=== PATIENT | female | born 1935 | race Caucasian/White ===

== ENCOUNTER → 2017-12-31 | Outpatient (CLI) | payer MEDICARE, BC ==
--- NOTE | 2017-12-31 17:28 | XR ---
EXAMINATION TYPE: XR abdomen 2V DATE OF EXAM: 12/31/2017 COMPARISON: NONE HISTORY: Constipation TECHNIQUE: 2 views FINDINGS: There is no sign of intestinal obstruction or pneumoperitoneum. Fecal pattern is normal. Th ere are no pathologic calcifications over the kidneys. Lung bases are clear. IMPRESSION: Nonacute abdomen.
== END ==
LOC: RADXRYALE 16:52
PROVIDERS: ATTEND Family Medicine
DX: K59.01 Slow transit constipation (principal)
CPT/HCPCS: 74019

== ENCOUNTER → 2018-03-26 | Outpatient (CLI) | payer MEDICARE, BC ==
--- NOTE | 2018-03-27 11:39 | XR ---
Cervical spine HISTORY: Neck pain, left shoulder pain 4 views of the cervical spine submitted. Patient is post median sternotomy. No odontoid view is submitted. Lateral extension endplate disc complex is causes some foraminal encroachment on the left at C5-6 and right. There is anterolisthesis grade 1 C3-4, retrolisthesis grade 1 C5-6. Multilevel spondylosis is present. Loss of disc height is greatest at C5-6 and present to lesser extent C4-5. Cervical vertebr al bodies show preserved height. Bone mineralization is reduced. Prevertebral soft tissues are normal . C7-T1 not well seen. Facet arthropathy changes noted. IMPRESSION: Degenerative disc disease, facet arthropathy. Osteopenia. Limitations as described.
--- NOTE | 2018-03-27 11:41 | XR ---
Left shoulder HISTORY: Pain 3 views of the left shoulder, correlation to prior exam 12/30/2014 There is arthropathy at the acromioclavicular joint. Alignment is maintained. Bone mineralization nicolle ewhat reduced. Left shoulder somewhat high riding. Left lung apex as visualized is normal. The aorta is dense. IMPRESSION: Acromioclavicular joint arthropathy. There may be chronic rotator cuff tear.
== END | disposition home or self-care (01) ==
LOC: RADXRYALE 15:41
PROVIDERS: ATTEND Physician Assistant Medical
DX: M50.30 Other cervical disc degeneration, unspecified cervical region (principal); M85.88 Other specified disorders of bone density and structure, other site; M46.92 Unspecified inflammatory spondylopathy, cervical region; M19.012 Primary osteoarthritis, left shoulder
CPT/HCPCS: 72050

== ENCOUNTER 2020-04-12 13:50 | Inpatient (IN) | payer MEDICARE, BC ==
--- NOTE | 2020-04-12 14:49 | ED ---
GI Bleed HPI - General Chief complaint: GI Bleed Stated complaint: rectal bleed Time Seen by Provider: 04/12/20 14:10 Source: patient Mode of arrival: wheelchair Limitations: no limitations - History of Present Illness Initial comments: Patient is an 84-year-old female with past medical history of hypertension who presents to emergency department with reported bright red blood per rectum. is at bedside and states that the symptoms have been going on for the past week. She had a large bowel movement yesterday which was bright red in color. She saw her primary care physician who took her off of her aspirin. States they stopped a second medication however they are unsure of what it is. The patient continued to have an episode this morning. Denies diarrhea or constipation. No history of similar in the past. Patient admits to right lower quadrant abdominal pain. States his been greater than 20 years and she had a colonoscopy. Denies any nausea or vomiting. No changes in her urination to include dysuria, hematuria or difficulty voiding. No fevers or chills. No other alleviating, precipitating or modifying factors - Related Data Home Medications Medication Instructions Recorded Confirmed Felodipine ER [Plendil] 5 mg PO DAILY 04/12/20 04/12/20 Meloxicam 15 mg PO DAILY PRN 04/12/20 04/12/20 Metoprolol Tartrate [Lopressor] 50 mg PO BID 04/12/20 04/12/20 Pantoprazole Sodium [Protonix] 40 mg PO DAILY 04/12/20 04/12/20 Simvastatin [Zocor] 20 mg PO DAILY 04/12/20 04/12/20 Allergies Allergy/AdvReac Type Severity Reaction Status Date / Time No Known Allergies Allergy Verified 04/12/20 14:10 Review of Systems ROS Statement: Those systems with pertinent positive or pertinent negative responses have been documented in the HPI. ROS Other: All systems not noted in ROS Statement are negative. Past Medical History Past Medical History: Hyperlipidemia, Hypertension Additional Past Medical History / Comment(s): pt poor historian Past Surgical History: Coronary Bypass/CABG, Heart Catheterization With Stent, Hernia Repair Additional Past Surgical History / Comment(s): poor historian, lt knee Past Psychological History: No Psychological Hx Reported Smoking Status: Never smoker Past Alcohol Use History: None Reported Past Drug Use History: None Reported General Exam Limitations: no limitations General appearance: alert, in no apparent distress Head exam: Present: atraumatic, normocephalic, normal inspection Eye exam: Present: normal appearance, PERRL, EOMI. Absent: scleral icterus, conjunctival injection, periorbital swelling ENT exam: Present: normal exam, mucous membranes moist Neck exam: Present: normal inspection. Absent: tenderness, meningismus, lymphadenopathy Respiratory exam: Present: normal lung sounds bilaterally. Absent: respiratory distress, wheezes, rales, rhonchi, stridor Cardiovascular Exam: Present: regular rate, normal rhythm, normal heart sounds. Absent: systolic murmur, diastolic murmur, rubs, gallop, clicks GI/Abdominal exam: Present: soft, normal bowel sounds. Absent: distended, tenderness, guarding, rebound, rigid Rectal exam: Present: bloody stool Extremities exam: Present: normal inspection, full ROM, normal capillary refill. Absent: tenderness, pedal edema, joint swelling, calf tenderness Back exam: Present: normal inspection Neurological exam: Present: alert, oriented X3, CN II-XII intact Psychiatric exam: Present: normal affect, normal mood Skin exam: Present: warm, dry, intact, normal color. Absent: rash Course Vital Signs 04/12/20 04/12/20 04/12/20 14:06 16:26 17:21 Temperature 99.1 F 97.6 F Pulse Rate 63 67 Pulse Rate [ 76 Pulse Oximetery ] Respiratory 18 16 17 Rate Blood Pressure 144/72 171/80 Blood Pressure 168/84 [Right Arm] O2 Sat by Pulse 100 98 97 Oximetry 04/12/20 17:30 Temperature 98.3 F Pulse Rate 69 Pulse Rate [ Pulse Oximetery ] Respiratory 16 Rate Blood Pressure 157/81 Blood Pressure [Right Arm] O2 Sat by Pulse 98 Oximetry Medical Decision Making - Medical Decision Making Upon arrival the patient was placed into room 10. A thorough history and physical exam is performed. The exam does demonstrate a small amount of dark, maroon stool. IV is established and laboratory studies were conducted. Patient does go for CT for abdomen and pelvis because of reported abdominal pain. Platelets mildly low at 147. Fecal occult does come back and is positive. CT demonstrates anal thickening with diverticulosis. There is a sclerotic changes of the abdominal aorta with some intraluminal plaquing. The patient is reevaluated and vitals are stable. Did recommend admission and order trend the patient's hemoglobin and have consult performed by GI. Patient and did agree to this. Spoke with Yokasta from [facility] who agreed to admit the patient. Patient is currently awaiting a bed - Lab Data Result diagrams: 04/14/20 03:41 04/15/20 04:34 Lab Results 04/12/20 04/12/20 04/12/20 Range/Units 14:50 14:57 14:57 WBC 4.9 (3.8-10.6) k/uL RBC 4.58 (3.80-5.40) m/uL Hgb 13.3 (11.4-16.0) gm/dL Hct 40.4 (34.0-46.0) % MCV 88.1 (80.0-100.0) fL MCH 28.9 (25.0-35.0) pg MCHC 32.8 (31.0-37.0) g/dL RDW 13.9 (11.5-15.5) % Plt Count 147 L (150-450) k/uL MPV 7.3 Neutrophils % 62 % Lymphocytes % 25 % Monocytes % 7 % Eosinophils % 3 % Basophils % 1 % Neutrophils # 3.0 (1.3-7.7) k/uL Lymphocytes # 1.2 (1.0-4.8) k/uL Monocytes # 0.4 (0-1.0) k/uL Eosinophils # 0.2 (0-0.7) k/uL Basophils # 0.0 (0-0.2) k/uL PT 10.3 (9.0-12.0) sec INR 1.0 (<1.2) APTT 20.2 L (22.0-30.0) sec Sodium (137-145) mmol/L Potassium (3.5-5.1) mmol/L Chloride (98-107) mmol/L Carbon Dioxide (22-30) mmol/L Anion Gap mmol/L BUN (7-17) mg/dL Creatinine (0.52-1.04) mg/dL Est GFR (CKD-EPI)AfAm (>60 ml/min/1.73 sqM) Est GFR (CKD-EPI)NonAf (>60 ml/min/1.73 sqM) BUN/Creatinine Ratio (12.00-20.00) Ratio Glucose (74-99) mg/dL Plasma Lactic Acid Taurus (0.7-2.0) mmol/L Calcium (8.4-10.2) mg/dL Total Bilirubin (0.2-1.3) mg/dL AST (14-36) U/L ALT (4-34) U/L Alkaline Phosphatase (38-126) U/L Troponin I (0.000-0.034) ng/mL Total Protein (6.3-8.2) g/dL Albumin (3.5-5.0) g/dL Lipase (23-300) U/L Stool Occult Blood (Negative) Blood Type O Negative Blood Type Recheck O Neg Bld Type Recheck Status No Antibody Screen NEGATIVE Spec Expiration Date 04/15/2020235604/12/20 04/12/20 04/12/20 Range/Units 14:57 14:57 14:57 WBC (3.8-10.6) k/uL RBC (3.80-5.40) m/uL Hgb (11.4-16.0) gm/dL Hct (34.0-46.0) % MCV (80.0-100.0) fL MCH (25.0-35.0) pg MCHC (31.0-37.0) g/dL RDW (11.5-15.5) % Plt Count (150-450) k/uL MPV Neutrophils % % Lymphocytes % % Monocytes % % Eosinophils % % Basophils % % Neutrophils # (1.3-7.7) k/uL Lymphocytes # (1.0-4.8) k/uL Monocytes # (0-1.0) k/uL Eosinophils # (0-0.7) k/uL Basophils # (0-0.2) k/uL PT (9.0-12.0) sec INR (<1.2) APTT (22.0-30.0) sec Sodium 141 (137-145) mmol/L Potassium 4.0 (3.5-5.1) mmol/L Chloride 106 (98-107) mmol/L Carbon Dioxide 29 (22-30) mmol/L Anion Gap 6 mmol/L BUN 19 H (7-17) mg/dL Creatinine 0.55 (0.52-1.04) mg/dL Est GFR (CKD-EPI)AfAm >90 (>60 ml/min/1.73 sqM) Est GFR (CKD-EPI)NonAf 86 (>60 ml/min/1.73 sqM) BUN/Creatinine Ratio (12.00-20.00) Ratio Glucose 93 (74-99) mg/dL Plasma Lactic Acid Taurus 1.0 (0.7-2.0) mmol/L Calcium 9.3 (8.4-10.2) mg/dL Total Bilirubin 0.7 (0.2-1.3) mg/dL AST 30 (14-36) U/L ALT 18 (4-34) U/L Alkaline Phosphatase 59 (38-126) U/L Troponin I <0.012 (0.000-0.034) ng/mL Total Protein 6.4 (6.3-8.2) g/dL Albumin 3.9 (3.5-5.0) g/dL Lipase 26 (23-300) U/L Stool Occult Blood (Negative) Blood Type Blood Type Recheck Bld Type Recheck Status Antibody Screen Spec Expiration Date 04/12/20 04/13/20 04/13/20 Range/Units 15:41 03:56 03:56 WBC 3.7 L (3.8-10.6) k/uL RBC 4.40 (3.80-5.40) m/uL Hgb 13.2 (11.4-16.0) gm/dL Hct 39.5 (34.0-46.0) % MCV 89.6 (80.0-100.0) fL MCH 29.9 (25.0-35.0) pg MCHC 33.4 (31.0-37.0) g/dL RDW 13.6 (11.5-15.5) % Plt Count 126 L (150-450) k/uL MPV 7.3 Neutrophils % 61 % Lymphocytes % 24 % Monocytes % 8 % Eosinophils % 4 % Basophils % 1 % Neutrophils # 2.3 (1.3-7.7) k/uL Lymphocytes # 0.9 L (1.0-4.8) k/uL Monocytes # 0.3 (0-1.0) k/uL Eosinophils # 0.1 (0-0.7) k/uL Basophils # 0.0 (0-0.2) k/uL PT (9.0-12.0) sec INR (<1.2) APTT (22.0-30.0) sec Sodium 145 (137-145) mmol/L Potassium 3.3 L (3.5-5.1) mmol/L Chloride 109 (98-107) mmol/L Carbon Dioxide 25.5 (22-30) mmol/L Anion Gap 10.50 mmol/L BUN 10.0 (7-17) mg/dL Creatinine 0.6 (0.52-1.04) mg/dL Est GFR (CKD-EPI)AfAm 96.3 (>60 ml/min/1.73 sqM) Est GFR (CKD-EPI)NonAf 83.1 (>60 ml/min/1.73 sqM) BUN/Creatinine Ratio 16.67 (12.00-20.00) Ratio Glucose 109 (74-99) mg/dL Plasma Lactic Acid Taurus (0.7-2.0) mmol/L Calcium 9.0 (8.4-10.2) mg/dL Total Bilirubin (0.2-1.3) mg/dL AST (14-36) U/L ALT (4-34) U/L Alkaline Phosphatase (38-126) U/L Troponin I (0.000-0.034) ng/mL Total Protein (6.3-8.2) g/dL Albumin (3.5-5.0) g/dL Lipase (23-300) U/L Stool Occult Blood Positive H (Negative) Blood Type Blood Type Recheck Bld Type Recheck Status Antibody Screen Spec Expiration Date 04/14/20 04/14/20 Range/Units 03:41 03:41 WBC 5.7 (3.8-10.6) k/uL RBC 4.33 (3.80-5.40) m/uL Hgb 13.4 (11.4-16.0) gm/dL Hct 38.5 (34.0-46.0) % MCV 88.9 (80.0-100.0) fL MCH 31.1 (25.0-35.0) pg MCHC 34.9 (31.0-37.0) g/dL RDW 13.6 (11.5-15.5) % Plt Count 162 (150-450) k/uL MPV 7.1 Neutrophils % % Lymphocytes % % Monocytes % % Eosinophils % % Basophils % % Neutrophils # (1.3-7.7) k/uL Lymphocytes # (1.0-4.8) k/uL Monocytes # (0-1.0) k/uL Eosinophils # (0-0.7) k/uL Basophils # (0-0.2) k/uL PT (9.0-12.0) sec INR (<1.2) APTT (22.0-30.0) sec Sodium 146 H (137-145) mmol/L Potassium 2.9 L (3.5-5.1) mmol/L Chloride 108 (98-107) mmol/L Carbon Dioxide 26.3 (22-30) mmol/L Anion Gap 11.70 mmol/L BUN 6.0 L (7-17) mg/dL Creatinine 0.6 (0.52-1.04) mg/dL Est GFR (CKD-EPI)AfAm 96.3 (>60 ml/min/1.73 sqM) Est GFR (CKD-EPI)NonAf 83.1 (>60 ml/min/1.73 sqM) BUN/Creatinine Ratio 10.00 L (12.00-20.00) Ratio Glucose 91 (74-99) mg/dL Plasma Lactic Acid Taurus (0.7-2.0) mmol/L Calcium 9.0 (8.4-10.2) mg/dL Total Bilirubin (0.2-1.3) mg/dL AST (14-36) U/L ALT (4-34) U/L Alkaline Phosphatase (38-126) U/L Troponin I (0.000-0.034) ng/mL Total Protein (6.3-8.2) g/dL Albumin (3.5-5.0) g/dL Lipase (23-300) U/L Stool Occult Blood (Negative) Blood Type Blood Type Recheck Bld Type Recheck Status Antibody Screen Spec Expiration Date - EKG Data EKG Comments: EKG demonstrates normal sinus rhythm with a ventricular rate of 61. OH interval 200. QRS 84. QTC of 448. No acute ST segment elevations or depressions Disposition Clinical Impression: GI bleed, Hematochezia Disposition: ADMITTED IP TO THIS [facility] Condition: Stable Is patient prescribed a controlled substance at d/c from ED?: No Decision to Admit Reason: Admit from EC Decision Date: 04/12/20 Decision Time: 16:29
[2020-04-12 15:13] LABS: Basophils % (A) 1 %; Eosinophils # (A) 0.2 k/uL (0-0.7); Eosinophils % (A) 3 %; HCT 40.4 % (34.0-46.0); HGB 13.3 gm/dL (11.4-16.0); Lymphocytes # (A) 1.2 k/uL (1.0-4.8); Lymphocytes % (A) 25 %; MCH 28.9 pg (25.0-35.0); MCHC 32.8 g/dL (31.0-37.0); MCV 88.1 fL (80.0-100.0); Mean Platelet Volume 7.3; Monocytes # (A) 0.4 k/uL (0-1.0); Monocytes % (A) 7 %; Neutrophils % (A) 62 %; Platelet Count 147 k/uL (150-450); RBC 4.58 m/uL (3.80-5.40); RDW 13.9 % (11.5-15.5); WBC 4.9 k/uL (3.8-10.6)
[2020-04-12 15:19] LABS: ALT 18 U/L (4-34); AST 30 U/L (14-36); African American GFR (CKD) >90 (>60 ml/min/1.73 sqM); Albumin 3.9 g/dL (3.5-5.0); Alkaline Phosphatase 59 U/L (38-126); Anion Gap 6 mmol/L; Blood Urea Nitrogen 19 mg/dL (7-17); Calcium 9.3 mg/dL (8.4-10.2); Carbon Dioxide 29 mmol/L (22-30); Chloride 106 mmol/L (98-107); Glucose 93 mg/dL (74-99); Lipase 26 U/L (23-300); Non-African American GFR(CKD) 86 (>60 ml/min/1.73 sqM); Sodium 141 mmol/L (137-145); Total Bilirubin 0.7 mg/dL (0.2-1.3); Total Protein 6.4 g/dL (6.3-8.2)
[2020-04-12 15:28] LABS: Prothrombin Time 10.3 sec (9.0-12.0)
[2020-04-12 15:33] LABS: Partial Thromboplastin Time 20.2 sec (22.0-30.0)
[2020-04-12] MEDS ORDERED: PANTOPRAZOLE 40 MG/10 ML VIAL IVP ONE (16:29)
[2020-04-12] MEDS ORDERED: NALOXONE 0.4 MG/ML 1 ML VIAL IV PRN (16:30)
[2020-04-12] MEDS: SODIUM CHLORIDE 0.9% 1,000 ML IV SCH (16:38)
--- NOTE | 2020-04-12 17:01 | CT ---
EXAMINATION TYPE: CT abdomen pelvis w con DATE OF EXAM: 04/12/2020 COMPARISON: None HISTORY: rectal bleeding CT DLP: 679.3 mGycm Automated exposure control for dose reduction was used. TECHNIQUE: Helical acquisition of images from the lung bases through the pelvis have been completed. CONTRAST: Performed without Oral Contrast and with IV Contrast, patient injected with 100 mL of Isovue 300. FINDINGS: Patient is post median sternotomy. Multiple surgical clips present at the gastroesophageal junction. There may be partial intrathoracic stomach or dilation of distal esophagus. There is streak artifact present. Mitral annular calcification is present, there are coronary artery calcifications. LUNG BASES: No significant abnormality is appreciated. AORTA: Atheromatous changes are present, abdominal aorta is ectatic in the infrarenal location with some luminal plaque measuring 3.1 cm, common iliac artery is mildly ectatic measuring 17 mm on the le ft. LIVER/GB: No significant abnormality is appreciated. PANCREAS: No significant abnormality is seen. SPLEEN: No significant abnormality is seen. ADRENALS: No significant abnormality is seen. KIDNEYS: No significant abnormality is seen. REPRODUCTIVE ORGANS: Not seen BOWEL: Question soft tissue swelling at the level of the anus. Correlate clinically. Difficult to exc lude mucosal thickening along the sigmoid colon, there is diverticular change. No evident bowel obstr uction. Surgical clips present at the level of the pubic symphysis on left. FREE AIR: No Free Air visible. ASCITES: None visible. PELVIC ADENOPATHY: None visualized. RETROPERITONEAL ADENOPATHY: No Retroperitoneal Adenopathy visible. URINARY BLADDER: No significant abnormality is seen. OSSEOUS STRUCTURES: There is multilevel spondylosis. There is a spinal curvature. Multilevel vacuum phenomenon present at intervertebral levels, bone mineralization thought to be reduced. There is face t arthropathy change. Degenerative changes are present at the sacroiliac joints, bilateral hips. Vacu um phenomenon present in the subchondral location along the right sacral ala. IMPRESSION: CORRELATE FOR POSSIBLE ANAL THICKENING. DIVERTICULOSIS. DEGENERATIVE DISC DISEASE AND FACET ARTHROPAT HY. POSTOP CHANGES AND ADDITIONAL FINDINGS ABOVE.
[2020-04-12] MEDS: METOPROLOL TARTRATE 50 MG TAB PO SCH (19:32)
[2020-04-13 04:36] LABS: Basophils % (A) 1 %; Eosinophils # (A) 0.1 k/uL (0-0.7); Eosinophils % (A) 4 %; HCT 39.5 % (34.0-46.0); HGB 13.2 gm/dL (11.4-16.0); Lymphocytes # (A) 0.9 k/uL (1.0-4.8); Lymphocytes % (A) 24 %; MCH 29.9 pg (25.0-35.0); MCHC 33.4 g/dL (31.0-37.0); MCV 89.6 fL (80.0-100.0); Mean Platelet Volume 7.3; Monocytes # (A) 0.3 k/uL (0-1.0); Monocytes % (A) 8 %; Neutrophils # (A) 2.3 k/uL (1.3-7.7); Neutrophils % (A) 61 %; Platelet Count 126 k/uL (150-450); RDW 13.6 % (11.5-15.5); WBC 3.7 k/uL (3.8-10.6)
[2020-04-13] MEDS: SODIUM CHLORIDE 0.9% 1,000 ML IV SCH ×2 (05:27→20:03)
[2020-04-13] MEDS: ATORVASTATIN 10 MG TAB PO SCH (09:32)
[2020-04-13] MEDS: amLODIPine 5 MG TAB PO SCH (09:32)
[2020-04-13] MEDS: METOPROLOL TARTRATE 50 MG TAB PO SCH ×2 (09:32→20:02)
[2020-04-13] MEDS: PANTOPRAZOLE 40 MG/10 ML VIAL IV SCH (09:32)
[2020-04-13 09:51] LABS: African American GFR (CKD) 96.3 (60.0-200.0); Anion Gap 10.5 mmol/L (4.00-12.00); BUN/Creat Ratio 16.67 Ratio (12.00-20.00); Carbon Dioxide 25.5 mmol/L (21.6-31.8); Non-African American GFR(CKD) 83.1 (60.0-200.0); Potassium 3.3 mmol/L (3.5-5.5)
--- NOTE | 2020-04-13 13:09 | P.HPIM ---
History of Present Illness This is a pleasant 84-year-old female came in with complains of lower GI bleed patient had an episode of large bloody bowel movement on Saturday that was 2 days ago, after that her PCP a discontinued aspirin and some other medications I believe it nonsteroidal anti-intermittent trace. Yesterday night patient had some bright red blood on the toilet a fever. Since stopping aspirin patient doesn't didn't have any more bleed except for that blood in the paper. Patient had a coloscopy 20 years ago patient had nausea vomiting abdominal pain dysuria. Patient denied any hematemesis. CT of the abdomen did show diverticulosis. Patient does have history of coronary artery disease with the stent and CABG in the past because of which patient is on aspirin Review of Systems REVIEW OF SYSTEMS: CONSTITUTIONAL: No fever, no malaise, no fatigue. HEENT: No recent visual problems or hearing problems. Denied any sore throat. CARDIOVASCULAR: No chest pain, orthopnea, PND, no palpitations, no syncope. PULMONARY: No shortness of breath, no cough, no hemoptysis. GASTROINTESTINAL: No diarrhea, no nausea, no vomiting, no abdominal pain. NEUROLOGICAL: No headaches, no weakness, no numbness. HEMATOLOGICAL: Denies any bleeding or petechiae. GENITOURINARY: Denies any burning micturition, frequency, or urgency. MUSCULOSKELETAL/RHEUMATOLOGICAL: Denies any joint pain, swelling, or any muscle pain. ENDOCRINE: Denies any polyuria or polydipsia. The rest of the 14-point review of systems is negative. Past Medical History Past Medical History: Hyperlipidemia, Hypertension Additional Past Medical History / Comment(s): pt poor historian History of Any Multi-Drug Resistant Organisms: None Reported Past Surgical History: Coronary Bypass/CABG, Heart Catheterization With Stent, Hernia Repair Additional Past Surgical History / Comment(s): poor historian, lt knee Past Anesthesia/Blood Transfusion Reactions: No Reported Reaction Date of Last Stent Placement:: 2011 Past Psychological History: No Psychological Hx Reported Smoking Status: Never smoker Past Alcohol Use History: None Reported Past Drug Use History: None Reported Medications and Allergies Home Medications Medication Instructions Recorded Confirmed Type Felodipine ER [Plendil] 5 mg PO DAILY 04/12/20 04/12/20 History Meloxicam 15 mg PO DAILY PRN 04/12/20 04/12/20 History Metoprolol Tartrate [Lopressor] 50 mg PO BID 04/12/20 04/12/20 History Pantoprazole Sodium [Protonix] 40 mg PO DAILY 04/12/20 04/12/20 History Simvastatin [Zocor] 20 mg PO DAILY 04/12/20 04/12/20 History traMADol HCL [Ultram] 50 mg PO DAILY PRN 04/12/20 04/12/20 History Allergies Allergy/AdvReac Type Severity Reaction Status Date / Time No Known Allergies Allergy Verified 04/12/20 14:10 Physical Exam Vitals: Vital Signs Temp Pulse Pulse Resp BP BP Pulse Ox 04/13/20 07:42 98.3 F 66 16 151/80 98 04/13/20 01:02 97.9 F 69 17 165/80 96 04/12/20 20:00 97.6 F 75 18 168/84 97 04/12/20 17:30 98.3 F 69 16 157/81 98 04/12/20 17:21 97.6 F 76 17 168/84 97 04/12/20 16:26 67 16 171/80 98 04/12/20 14:06 99.1 F 63 18 144/72 100 Intake and Output 04/12/20 04/13/20 04/13/20 22:59 06:59 14:59 Intake Total 600 Balance 600 Intake: Intake, IV Titration 600 Amount Sodium Chloride 0.9% 1, 600 000 ml @ 75 mls/hr IV . [id number] [facility] Rx#:[id number] Other: Voiding Method Toilet Toilet # Voids 3 2 3 Weight 57.606 kg PHYSICAL EXAMINATION: GENERAL: The patient is alert and oriented x3, not in any acute distress. Well developed, well nourished. HEENT: Pupils are round and equally reacting to light. EOMI. No scleral icterus. No conjunctival pallor. Normocephalic, atraumatic. No pharyngeal erythema. No thyromegaly. CARDIOVASCULAR: S1 and S2 present. No murmurs, rubs, or gallops. PULMONARY: Chest is clear to auscultation, no wheezing or crackles. ABDOMEN: Soft, nontender, nondistended, normoactive bowel sounds. No palpable organomegaly. MUSCULOSKELETAL: No joint swelling or deformity. EXTREMITIES: No cyanosis, clubbing, or pedal edema. NEUROLOGICAL: Gross neurological examination did not reveal any focal deficits. SKIN: No rashes. Results CBC & Chem 7: 04/13/20 03:56 04/13/20 03:56 Labs: Abnormal Lab Results - Last 24 Hours (Table) 04/12/20 04/12/20 04/12/20 Range/Units 14:57 14:57 14:57 WBC (3.8-10.6) k/uL Plt Count 147 L (150-450) k/uL Lymphocytes # (1.0-4.8) k/uL APTT 20.2 L (22.0-30.0) sec Potassium (3.5-5.5) mmol/L BUN 19 H (7-17) mg/dL Stool Occult Blood (Negative) 04/12/20 04/13/20 04/13/20 Range/Units 15:41 03:56 03:56 WBC 3.7 L (3.8-10.6) k/uL Plt Count 126 L (150-450) k/uL Lymphocytes # 0.9 L (1.0-4.8) k/uL APTT (22.0-30.0) sec Potassium 3.3 L (3.5-5.5) mmol/L BUN (7-17) mg/dL Stool Occult Blood Positive H (Negative) Thrombosis Risk Factor Assmnt - Choose All That Apply Any of the Below Risk Factors Present?: No Other Risk Factors: Yes Each Risk Factor Represents 3 Points: Age 75 years or older Other congenital or acquired thrombophilia - If yes, enter type in comment: No Thrombosis Risk Factor Assessment Total Risk Factor Score: 3 Thrombosis Risk Factor Assessment Level: Moderate Risk Assessment and Plan Plan: Lower GI bleed possibly secondary to diverticulosis patient the is on nonste roidal anti-inflammatory recent aspirin which will be held at this time gastro- oncology will evaluate the patient patient probably will undergo colonoscopy. -Hypertension -Coronary artery disease
[2020-04-13] MEDS ORDERED: PEG 3350-NA SULF,BICARB,CL/KCL 4,000 ML BOTTLE PO ONE (16:00)
--- NOTE | 2020-04-14 00:03 | P.CONS ---
History of Present Illness - Reason for Consult Consult date: 04/13/20 GI bleed Requesting physician: Sosa Chen - Chief Complaint Blood per rectum - History of Present Illness 84-year-old female with a medical history significant for hypertension, hyperlipidemia and coronary artery disease who presented to the hospital due to complaints of blood per rectum. Patient reports symptoms started over the weekend. She reports several episodes of large amounts of bright red blood per rectum. She denies any pain with the episode. She reports darker blood passed today. She states her last colonoscopy was several years ago but does have a grandmother who has a history of colon cancer as well as her sister who at 65 of colon cancer. On presentation computed tomography scan of the abdomen showed possible antral thickening with diverticulosis as well as possible partial intrathoracic stomach with dilation of the distal esophagus. Laboratory evaluation significant for WBC 3.7, hemoglobin 13.2, platelet count 196,000, total bilirubin 0.7, alkaline phosphatase 59, AST 30, ALT 18 and stool positive for occult blood. Review of Systems REVIEW OF SYSTEMS: CONSTITUTIONAL: Denies any fevers, chills, weight change or fatigue. CARDIOVASCULAR: Denies any chest pain, palpitations high or low blood pressures RESPIRATORY: Denies any shortness of breath, hemoptysis or cough. GENITOURINARY: No dysuria or hematuria. MUSCULOSKELETAL: No weakness reported. SKIN: Denies any new rashes or lesions, jaundice or pallor. PSYCHIATRIC: Denies any depression or anxiety. NEUROLOGY: Denies headache, denies any new focal deficits. EARS/NOSE/THROAT: No recent hearing change, congestion, nasal discharge or sore throat. EYES: No pain in eyes, discharge or change in vision. GASTROINTESTINAL: As per HPI. Past Medical History Past Medical History: Hyperlipidemia, Hypertension Additional Past Medical History / Comment(s): pt poor historian History of Any Multi-Drug Resistant Organisms: None Reported Past Surgical History: Coronary Bypass/CABG, Heart Catheterization With Stent, Hernia Repair Additional Past Surgical History / Comment(s): poor historian, lt knee Past Anesthesia/Blood Transfusion Reactions: No Reported Reaction Date of Last Stent Placement:: 2011 Past Psychological History: No Psychological Hx Reported Smoking Status: Never smoker Past Alcohol Use History: None Reported Past Drug Use History: None Reported Additional History: Family history: Patient reports colon cancer in her grandmother and her sister who passed at the age of 65 secondary to colon cancer. Medications and Allergies Home Medications Medication Instructions Recorded Confirmed Type Felodipine ER [Plendil] 5 mg PO DAILY 04/12/20 04/12/20 History Meloxicam 15 mg PO DAILY PRN 04/12/20 04/12/20 History Metoprolol Tartrate [Lopressor] 50 mg PO BID 04/12/20 04/12/20 History Pantoprazole Sodium [Protonix] 40 mg PO DAILY 04/12/20 04/12/20 History Simvastatin [Zocor] 20 mg PO DAILY 04/12/20 04/12/20 History traMADol HCL [Ultram] 50 mg PO DAILY PRN 04/12/20 04/12/20 History Allergies Allergy/AdvReac Type Severity Reaction Status Date / Time No Known Allergies Allergy Verified 04/12/20 14:10 Physical Exam Vitals: Vital Signs Temp Pulse Pulse Resp BP BP Pulse Ox 04/13/20 07:42 98.3 F 66 16 151/80 98 04/13/20 01:02 97.9 F 69 17 165/80 96 04/12/20 20:00 97.6 F 75 18 168/84 97 04/12/20 17:30 98.3 F 69 16 157/81 98 04/12/20 17:21 97.6 F 76 17 168/84 97 04/12/20 16:26 67 16 171/80 98 04/12/20 14:06 99.1 F 63 18 144/72 100 Intake and Output 04/12/20 04/13/20 04/13/20 22:59 06:59 14:59 Intake Total 600 Balance 600 Intake: Intake, IV Titration 600 Amount Sodium Chloride 0.9% 1, 600 000 ml @ 75 mls/hr IV . [id number] [facility] Rx#:[id number] Other: Voiding Method Toilet Toilet # Voids 3 2 3 Weight 57.606 kg On physical examination, patient appears comfortable in no apparent distress. HEAD: Normocephalic, atraumatic. EYES: No scleral icterus. No conjunctival injection. MOUTH: No lesions, tongue midline. NECK: Trachea midline, no gross abnormalities. CHEST: Clear to auscultation with no wheezing or rhonchi appreciated. HEART: Regular rate and rhythm. ABDOMEN: Soft, thin and nontender to palpation. Bowel sounds are positive. No organomegaly. No guarding or rigidity. EXTREMITIES: No pedal edema. SKIN: No rashes, no jaundice. NEUROLOGIC: Alert and oriented x3. No focal deficits. Results CBC & Chem 7: 04/13/20 03:56 04/13/20 03:56 Labs: Abnormal Lab Results - Last 24 Hours (Table) 04/12/20 04/12/20 04/12/20 Range/Units 14:57 14:57 14:57 WBC (3.8-10.6) k/uL Plt Count 147 L (150-450) k/uL Lymphocytes # (1.0-4.8) k/uL APTT 20.2 L (22.0-30.0) sec Potassium (3.5-5.5) mmol/L BUN 19 H (7-17) mg/dL Stool Occult Blood (Negative) 04/12/20 04/13/20 04/13/20 Range/Units 15:41 03:56 03:56 WBC 3.7 L (3.8-10.6) k/uL Plt Count 126 L (150-450) k/uL Lymphocytes # 0.9 L (1.0-4.8) k/uL APTT (22.0-30.0) sec Potassium 3.3 L (3.5-5.5) mmol/L BUN (7-17) mg/dL Stool Occult Blood Positive H (Negative) CT scan - abdomen: report reviewed (Computed tomography scan of the abdomen with findings of diverticulosis, possible thickening of the anus, and degenerative disc disease.) Assessment and Plan (1) GI bleed Narrative/Plan: 84-year-old female with multiple medical comorbidities presents to the hospital for multiple episodes of painless bright red blood per rectum. She denies any similar complaints in the past. She believes her last colonoscopy was in the past few years. She has a family history of colon cancer in her grandmother and her sister who passed at the age of 65. Computed tomography scan of the abdomen performed in evaluation showed diverticulosis, possible anal thickening and degenerative disc disease. Hemoglobin was stable on presentation at 13.2. Stool testing was positive for occult blood. Unclear etiology, may be related to diverticular bleed, hemorrhoidal bleeding, AVM, or other etiology. Current Visit: Yes Status: Acute Code(s): K92.2 - GASTROINTESTINAL HE MORRHAGE, UNSPECIFIED SNOMED Code(s): 64385039 (2) Family history of colon cancer Current Visit: Yes Status: Acute Code(s): Z80.0 - FAMILY HISTORY OF MALIGNANT NEOPLASM OF DIGESTIVE ORGANS SNOMED Code(s): 129198398 (3) Diverticulosis Current Visit: Yes Status: Acute Code(s): K57.90 - DVRTCLOS OF INTEST, PART UNSP, W/O PERF OR ABSCESS W/O BLEED SNOMED Code(s): 387865045 Plan: Supportive care Clear liquid diet Nothing by mouth after midnight Continue to monitor hemoglobin and hematocrit and transfuse as needed Bowel prep was ordered Plan for colonoscopy tomorrow for further evaluation, all of the risks, benefits and possible complications of the procedure have been explained to the patient length with all of her questions answered to her satisfaction Hold anticoagulation therapy for now Thank you for allowing us to participate in the care of the patient we will continue to follow
[2020-04-14] MEDS: MELATONIN 5 MG TABLET PO PRN ×2 (03:46→21:05)
[2020-04-14 04:15] LABS: HCT 38.5 % (34.0-46.0); HGB 13.4 gm/dL (11.4-16.0); MCH 31.1 pg (25.0-35.0); MCHC 34.9 g/dL (31.0-37.0); MCV 88.9 fL (80.0-100.0); Mean Platelet Volume 7.1; Platelet Count 162 k/uL (150-450); RBC 4.33 m/uL (3.80-5.40); RDW 13.6 % (11.5-15.5); WBC 5.7 k/uL (3.8-10.6)
[2020-04-14] MEDS: ATORVASTATIN 10 MG TAB PO SCH (09:21)
[2020-04-14] MEDS: METOPROLOL TARTRATE 50 MG TAB PO SCH ×2 (09:21→21:05)
[2020-04-14] MEDS: PANTOPRAZOLE 40 MG/10 ML VIAL IV SCH (09:21)
[2020-04-14] MEDS: SODIUM CHLORIDE 0.9% 1,000 ML IV SCH (09:22)
[2020-04-14 09:38] LABS: African American GFR (CKD) 96.3 (60.0-200.0); Anion Gap 11.7 mmol/L (4.00-12.00); Carbon Dioxide 26.3 mmol/L (21.6-31.8); Non-African American GFR(CKD) 83.1 (60.0-200.0); Potassium 2.9 mmol/L (3.5-5.5)
[2020-04-14] MEDS: amLODIPine 5 MG TAB PO SCH (09:58)
[2020-04-14] MEDS ORDERED: Potassium Replacement Protocol 1 EACH MISC MISCELLANE PRN (12:04)
[2020-04-14] MEDS ORDERED: POTASSIUM CHLORIDE ER 20 MEQ TAB.ER PO SCH (12:08)
--- NOTE | 2020-04-14 12:20 | P.PN ---
Subjective Progress Note Date: 04/14/20 This is a pleasant 84-year-old female came in with complains of lower GI bleed patient had an episode of large bloody bowel movement on Saturday that was 2 days ago, after that her PCP a discontinued aspirin and some other medications I believe it nonsteroidal anti-intermittent trace. Yesterday night patient had some bright red blood on the toilet a fever. Since stopping aspirin patient doesn't didn't have any more bleed except for that blood in the paper. Patient had a coloscopy 20 years ago patient had nausea vomiting abdominal pain dysuria. Patient denied any hematemesis. CT of the abdomen did show diverticulosis. Patient does have history of coronary artery disease with the stent and CABG in the past because of which patient is on aspirin 04/14/2020 Patient is seen this morning and has completed the prep and awaiting to undergo colonoscopy with GI today. Patient denies any bleeding noted in the stool and aspirin has been on hold. Patient is maintained on Protonix and will continue. Patient did receive blood pressure medications this morning as she was slightly elevated. BMP finally resulted showing a potassium of 2.9 and will replace. Sodium slightly elevated at 146 and fluids have been discontinued. Will repeat BMP in order magnesium. Patient currently denies any chest pain, shortness of breath, or palpitations. Patient is afebrile. Patient has been nothing by mout h since midnight for procedure. Will await report. Review of systems: Constitutional: No reports of fatigue, fever, or chills Cardiovascular: No reports of chest pain or palpitations Respiratory: No reports of shortness of breath or cough GI: No reports of nausea, vomiting, reports multiple loose stools and underwent GoLYTELY prep : No reports of dysuria or retention Neurovascular: No reports of weakness or numbness All medications have been reviewed Objective - Vital Signs Vital signs: Vital Signs Temp 98 F 04/14/20 08:00 Pulse 68 04/14/20 08:00 Resp 16 04/14/20 08:00 BP 132/56 04/14/20 10:24 Pulse Ox 98 04/14/20 08:00 Intake & Output 04/13/20 04/14/20 04/14/20 18:59 06:59 18:59 Intake Total 1140 Balance 1140 Intake: Intake, IV Titration 600 Amount Sodium Chloride 0.9% 1, 600 000 ml @ 75 mls/hr IV . [id number] [facility] Rx#:[id number] Oral 540 Other: Voiding Method Toilet Toilet Toilet # Voids 1 3 - Exam GENERAL: The patient is alert and oriented x3, not in any acute distress. Well developed, well nourished. Slightly hard of hearing. HEENT: Pupils are round and equally reacting to light. EOMI. No scleral icterus. No conjunctival pallor. Normocephalic, atraumatic. No pharyngeal erythema. No thyromegaly. CARDIOVASCULAR: S1 and S2 present. No murmurs, rubs, or gallops. PULMONARY: Chest is clear to auscultation, no wheezing or crackles. ABDOMEN: Soft, nontender, nondistended, normoactive bowel sounds. No palpable organomegaly. MUSCULOSKELETAL: No joint swelling or deformity. EXTREMITIES: No cyanosis, clubbing, or pedal edema. NEUROLOGICAL: Gross neurological examination did not reveal any focal deficits. SKIN: No rashes. - Labs CBC & Chem 7: 04/14/20 03:41 04/14/20 03:41 Labs: Abnormal Lab Results - Last 24 Hours (Table) 04/14/20 Range/Units 03:41 Sodium 146 H (135-145) mmol/L Potassium 2.9 L (3.5-5.5) mmol/L BUN 6.0 L (9.0-27.0) mg/dL BUN/Creatinine Ratio 10.00 L (12.00-20.00) Ratio Assessment and Plan Assessment: -Lower GI bleed possibly secondary to diverticulosis. Patient completed GoLYTELY prep and scheduled to undergo colonoscopy with GI today. aspirin currently on hold and will avoid NSAIDs at this time -Hypokalemia possibly due to GoLYTELY prep -Mild Hypernatremia possibly secondary to above, will repeat labs -Hypertension, continue with home medications -Coronary artery disease
[2020-04-14] MEDS ORDERED: POTASSIUM CHLORIDE ER 20 MEQ TAB.ER PO STA (12:22)
--- NOTE | 2020-04-14 16:37 | P.PN ---
Subjective Progress Note Date: 04/14/20 Principal diagnosis: Rectal bleeding The patient was seen and examined this morning without any acute changes through the night. Denies any abdominal pain, nausea, or vomiting. She finished her bowel prep without any difficulties was scheduled to undergo a colonoscopy today. She denied any further rectal bleeding. The patient had a low potassium of 2.9, therefore colonoscopy results for today and will be scheduled tomorrow pending potassium replacement and normalization. Objective - Vital Signs Vital signs: Vital Signs Temp 97.9 F 04/14/20 14:00 Pulse 66 04/14/20 14:00 Resp 16 04/14/20 14:00 BP 152/75 04/14/20 14:00 Pulse Ox 99 04/14/20 14:00 Intake & Output 04/13/20 04/14/20 04/14/20 18:59 06:59 18:59 Intake Total 1140 Balance 1140 Intake: Intake, IV Titration 600 Amount Sodium Chloride 0.9% 1, 600 000 ml @ 75 mls/hr IV . [id number] [facility] Rx#:[id number] Oral 540 Other: Voiding Method Toilet Toilet Toilet # Voids 1 3 - Exam General appearance: The patient is alert, oriented, appears in no acute distress. HET: Head is normocephalic and atraumatic. Conjunctiva pink. Sclera andicteric. Neck: Supple without lymphadenopathy. Abdomen: Soft, nontender, nondistended with bowel sounds. No guarding or rigidity. Extremities: Normal skin color and turgor. No pedal edema Neurological: No focal deficits. Alert and oriented 3. - Labs CBC & Chem 7: 04/14/20 03:41 04/14/20 03:41 Labs: Abnormal Lab Results - Last 24 Hours (Table) 04/14/20 Range/Units 03:41 Sodium 146 H (135-145) mmol/L Potassium 2.9 L (3.5-5.5) mmol/L BUN 6.0 L (9.0-27.0) mg/dL BUN/Creatinine Ratio 10.00 L (12.00-20.00) Ratio Assessment and Plan (1) GI bleed Narrative/Plan: 84-year-old female with multiple medical comorbidities presents to the hospital for multiple episodes of painless bright red blood per rectum. She denies any similar complaints in the past. She believes her last colonoscopy was in the past few years. She has a family history of colon cancer in her grandmother and her sister who passed at the age of 65. Computed tomography scan of the abdomen performed in evaluation showed diverticulosis, possible anal thickening and degenerative disc disease. Hemoglobin was stable on presentation at 13.2. Stool testing was positive for occult blood. Unclear etiology, may be related to diverticular bleed, hemorrhoidal bleeding, AVM, or other etiology. Current Visit: Yes Status: Acute Code(s): K92.2 - GASTROINTESTINAL HEMORRHAGE, UNSPECIFIED SNOMED Code(s): 51872269 (2) Family history of colon cancer Current Visit: Yes Status: Acute Code(s): Z80.0 - FAMILY HISTORY OF MALIGNAN T NEOPLASM OF DIGESTIVE ORGANS SNOMED Code(s): 417981399 (3) Diverticulosis Current Visit: Yes Status: Acute Code(s): K57.90 - DVRTCLOS OF INTEST, PART UNSP, W/O PERF OR ABSCESS W/O BLEED SNOMED Code(s): 451816212 Plan: Supportive care Clear liquid diet Nothing by mouth after midnight Continue to monitor hemoglobin and hematocrit and transfuse as needed [employer] citrate tomorrow morning 0600 Plan for colonoscopy tomorrow for further evaluation, all of the risks, benefits and possible complications of the procedure have been explained to the patient length with all of her questions answered to her satisfaction Hold anticoagulation therapy for now Repeat BMP in morning, call if abnormal potassium level Thank you for allowing us to participate in the care of the patient we will continue to follow Dr. Dutton I agree with the dictator's note, documented as a scribe by Bianca DUBOSE .
[2020-04-15] MEDS ORDERED: MAGNESIUM CITRATE 296 ML BOTTLE PO ONE (06:00)
[2020-04-15] MEDS: METOPROLOL TARTRATE 50 MG TAB PO SCH (07:54)
[2020-04-15] MEDS: PANTOPRAZOLE 40 MG/10 ML VIAL IV SCH (07:55)
[2020-04-15 09:30] LABS: African American GFR (CKD) 96.3 (60.0-200.0); Blood Urea Nitrogen <5.0 mg/dL (9.0-27.0); Calcium 8.9 mg/dL (8.7-10.3); Carbon Dioxide 22.6 mmol/L (21.6-31.8); Chloride 108 mmol/L (96-109); Glucose 100 mg/dL (70-110); Magnesium 1.7 mg/dL (1.5-2.4); Non-African American GFR(CKD) 83.1 (60.0-200.0); Potassium 3.7 mmol/L (3.5-5.5); Sodium 143 mmol/L (135-145)
[2020-04-15] MEDS ORDERED: POTASSIUM CHLORIDE ER 20 MEQ TAB.ER PO STA (11:07)
[2020-04-15] MEDS: amLODIPine 5 MG TAB PO SCH (11:58)
[2020-04-15] MEDS: MAGNESIUM SULFATE-D5W PMX 1 GM in DEXTROSE/WATER 1 100ML.BAG IVPB SCH ×2 (12:00→13:33)
[2020-04-15 13:52] VITALS: BMI 23.2
[2020-04-15 14:09] VITALS: TEMP 97.5
[2020-04-15] MEDS ORDERED: PROPOFOL 10 MG/ML 20 ML VIAL IV ONE (14:31)
[2020-04-15] MEDS ORDERED: IV FLUID CONTINUATION 1,000 ML IV ONE (14:32)
[2020-04-15] MEDS ORDERED: amLODIPine 5 MG TAB PO STA (15:54)
--- NOTE | 2020-04-15 15:59 | P.PCN ---
Date of Procedure: 04/15/20 Description of Procedure: BRIEF HISTORY: 84-year-old female with a medical history significant for hypertension, hyperlipidemia and coronary artery disease who presented to the hospital due to complaints of blood per rectum. Patient reports symptoms started over the weekend. She reports several episodes of large amounts of bright red blood per rectum. She denies any pain with the episode. She reports darker blood passed today. She states her last colonoscopy was several years ago but does have a grandmother who has a history of colon cancer as well as her sister who at 65 of colon cancer. On presentation computed tomography scan of the abdomen showed possible antral thickening with diverticulosis as well as possible partial intrathoracic stomach with dilation of the distal esophagus. Stool positive for occult blood. PROCEDURE PERFORMED: Colonoscopy. PREOPERATIVE DIAGNOSIS: GI bleed, hematochezia. ESTIMATED BLOOD LOSS: Minimal. IV sedation per Anesthesia. PROCEDURE: After informed consent was obtained, the patient, was brought into the endoscopy unit. IV sedation was administered by Anesthesia under continuous monitoring. Digital rectal examination was normal. Initially the Olympus CF-190 flexible video colonoscope was then inserted in the rectum, gradually advanced into the cecum without any difficulty. Careful examination was performed as the scope was gradually being withdrawn. Ileocecal valve and the appendiceal orifice were visualized and appeared normal. Prep was excellent. Mucosa of the cecum, ascending colon, transverse colon, descending colon, sigmoid colon, and rectum appeared normal, with multiple small and large mouth diverticula noted in the left colon. Retroflexion was performed in the rectum and no lesions were seen, large internal hemorrhoids. The patient tolerated the procedure well. IMPRESSION: Moderate left colonic diverticulosis. Internal hemorrhoids. Otherwise normal-appearing colon from rectum to cecum . RECOMMENDATIONS: Findings of this examination were discussed with the patient. Okay to resume diet. Okay to resume medications. Suspected diverticular or hemorrhoidal bleeding. Discussed with the patient and recommend local hemorrhoidal care if further bleeding. Okay for discharge from GI standpoint.
[2020-04-15] MEDS: ATORVASTATIN 10 MG TAB PO SCH (16:12)
[2020-04-15 17:08] VITALS: RESP 16
[2020-04-15 17:11] VITALS: BP 163/74; PULSE 67
--- NOTE | 2020-04-18 09:11 | P.DS ---
Providers Date of admission: 04/14/20 15:12 Expected date of discharge: 04/15/20 Attending physician: Siobhan Lerma Consults: 04/12/20 16:31 Consult Physician Urgent Consulting Provider: Oseas Dutton Consult Reason/Comments: acute gi bleed Do you want consulting provider notified?: Yes Primary care physician: Addison Verde Hospital Course: Final diagnosis -Lower GI bleed possibly secondary to diverticulosis -Hypokalemia possibly due to GoLYTELY prep, improved -Mild Hypernatremia possibly secondary to above, improved -Hypertension -Coronary artery disease -History of CABG with stent Discharge disposition Patient is being discharged in a stable condition with guarded prognosis to home. Patient will follow-up with Dr. Verde in the outpatient setting upon discharge. Patient will also be following up outpatient with GI as needed. Total time taken is greater than 35 minutes. Hospital course This is an 84-year-old female who was recently admitted with possible lower GI bleed and was being closely monitored. Patient was seen and evaluated by GI and aspirin was placed on hold and patient completed the GoLYTELY prep and underwent colonoscopy showing moderate left colonic diverticulosis with some internal hemorrhoids otherwise normal-appearing colon from the rectum to cecum no active bleeding noted. Hemoglobin remains stable at 13.4 with no additional bleeding noted. Patient had a low potassium after completing the bowel prep which delayed the colonoscopy and was replaced and current potassium was 3.7. Patient does take aspirin for history of coronary artery disease with CABG and stent placement and okay to resume medications. Currently no reports of chest pain, shortness of breath, or palpitations. Patient is afebrile. No reports of nausea or vomiting and patient is tolerating diet. Patient will be discharged home today. On exam vital signs are stable. Temp is 97.9F, pulse is 78, respirations are 20, blood pressure is 151/87, oxygen saturation is 98% on room air. Cardio S1, S2 are muffled. Respiratory system shows diminished breath sounds at the bases with no wheezing or rhonchi noted. Abdomen is soft and nontender. Nervous system shows no focal deficits. Please refer to medication reconciliation sheet for a list of medications. Patient Condition at Discharge: Stable Plan - Discharge Summary Discharge Rx Participant: No New Discharge Prescriptions: Continue Metoprolol Tartrate [Lopressor] 50 mg PO BID Simvastatin [Zocor] 20 mg PO DAILY Pantoprazole Sodium [Protonix] 40 mg PO DAILY Felodipine ER [Plendil] 5 mg PO DAILY Meloxicam 15 mg PO DAILY PRN PRN Reason: Pain Discontinued traMADol HCL [Ultram] 50 mg PO DAILY PRN PRN Reason: Pain Discharge Medication List Felodipine ER [Plendil] 5 mg PO DAILY 04/12/20 [History] Meloxicam 15 mg PO DAILY PRN 04/12/20 [History] Metoprolol Tartrate [Lopressor] 50 mg PO BID 04/12/20 [History] Pantoprazole Sodium [Protonix] 40 mg PO DAILY 04/12/20 [History] Simvastatin [Zocor] 20 mg PO DAILY 04/12/20 [History] Follow up Appointment(s)/Referral(s): Addison Verde DO [Primary Care Provider] - 04/18/20 3:20 pm (Appointment will be with Melanie.) Oseas Dutton MD [STAFF PHYSICIAN] - 1 Week (Please call office to make follow up with . ( [phone]).) Patient Instructions/Handouts: *Surgery [facility] - (Anesthesia) Endoscopy Discharge Instructions, Hemorrhoids (DC), Diverticulosis (DC), Colonoscopy (DC) Activity/Diet/Wound Care/Special Instructions: Activity Limited until follow-up Follow-up with primary care provider upon discharge Continue to hold aspirin until follow-up with primary care provider this week Discharge Disposition: HOME SELF-CARE
== END 2020-04-15 17:53 | disposition home or self-care (01) | DRG 378 ==
LOC: EC 13:50 → 6NMEDSUR 16:30 → OBSVTOIN 04-14 15:12
PROVIDERS: ADMIT Hospitalist; ATTEND Hospitalist
PROC: 0DJD8ZZ Inspection of Lower Intestinal Tract, Via Natural or Artificial Opening Endoscopic (ICD-10-PCS; principal; 2020-04-15 14:35)
DX: K57.31 Diverticulosis of large intestine without perforation or abscess with bleeding (principal); E87.0 Hyperosmolality and hypernatremia; K64.8 Other hemorrhoids; E87.6 Hypokalemia; I10 Essential (primary) hypertension; I25.10 Atherosclerotic heart disease of native coronary artery without angina pectoris; E78.5 Hyperlipidemia, unspecified; Z79.1 Long term (current) use of non-steroidal anti-inflammatories (NSAID); Z79.899 Other long term (current) drug therapy; Z95.5 Presence of coronary angioplasty implant and graft; Z95.1 Presence of aortocoronary bypass graft; Z87.19 Personal history of other diseases of the digestive system; Z87.39 Personal history of other diseases of the musculoskeletal system and connective tissue; Z98.890 Other specified postprocedural states; Z80.0 Family history of malignant neoplasm of digestive organs
CPT/HCPCS: 36415; 45378; 74177; 80048; 80053; 82272; 83605; 83690; 83735; 84132; 84484; 85025; 85027; 85610; 85730; 86850; 86900; 86901; 93005; 96374; 99285

== ENCOUNTER → 2020-11-03 | Outpatient (CLI) | payer MEDICARE, BC ==
--- NOTE | 2020-11-03 11:35 | MR ---
EXAMINATION TYPE: MR brain wo con DATE OF EXAM: 11/03/2020 COMPARISON: NONE HISTORY: Memory loss. TECHNIQUE: T1-weighted sagittal, T2, FLAIR, and diffusion axial, and T2 coronal coronal views of the brain are submitted. FINDINGS: There is no evidence of acute ischemia. Moderate generalized degenerative change of diffuse nonspecif ic white matter changes most consistent with extensive remote white matter ischemia. Abnormal signal seen within the cerebellar hemispheres and tejas also is just above remote ischemia. No midline shift or mass effect. Craniocervical junction maintained in the sella turcica has a normal appearance. Orbits are symmetric and there are changes of mild chronic sinusitis with nasal septal d eviation.. IMPRESSION: 1. No acute intracranial process. Moderate to severe degenerative change with extensive nonspecific w antoni matter changes most typical remote ischemia. 2. Remote ischemic changes involving the tejas and cerebellar hemispheres also suspected.
== END | disposition home or self-care (01) ==
LOC: RADMRIMAIN 10:08
PROVIDERS: ATTEND Physician Assistant Medical
DX: R41.3 Other amnesia (principal)
CPT/HCPCS: 70551

== ENCOUNTER → 2023-02-05 | Outpatient (CLI) | payer MEDICARE ==
--- NOTE | 2023-02-05 14:59 | XR ---
EXAMINATION TYPE: XR abdomen 2V DATE OF EXAM: 02/05/2023 2:19 PM CLINICAL INDICATION:Female, 87 years old with history of [id number] RLQ PAIN; [facility] COMPARISON: 12/31/2017 TECHNIQUE: Two views of the abdomen were obtained. FINDINGS: The bowel gas pattern is nonspecific without dilated loops of small or large bowel. There i s no evidence for organomegaly or pneumoperitoneum. The osseous structures are intact. No abnormal calcifications are present. Fecal material and gas are demonstrated throughout the colon and rectum. Severe degeneration changes of the spine with scoliosis changes. Degeneration of the hips with osteo phyte formation and joint space narrowing. Scattered surgical clips at the gastroesophageal junction lying in the pelvis. IMPRESSION: Nonspecific bowel gas pattern without radiographic evidence for acute process. No significant change from prior.
== END | disposition home or self-care (01) ==
LOC: RADXRYALE 14:03
PROVIDERS: ATTEND Physician Assistant Medical
DX: R10.31 Right lower quadrant pain (principal)
CPT/HCPCS: 74019